=== PATIENT | female | born 1950 | race African-American/Black ===

== ENCOUNTER 2025-03-12 08:30 | Inpatient (IN) | payer OTHER, MEDICARE ==
[~2025-03-12] VITALS: Ht 162.6 cm; Wt 109.0 kg
--- NOTE | 2025-03-12 08:48 | ED.PDOC ---
History of Present Illness HPI Comments This is a 74 year old female presenting to the ED with chief complaint of dizziness. Patient reports that since Sunday, she has been experiencing dizziness with associated nausea, blurred vision, and mild SOB. Patient relays that she has also had some frequent urination, but does not believe it is related. Patient states that getting up worsens her symptoms, but laying down relieves them. Patient notes a recent trip where she was on a flight for 11 hours and since then has had some left calf pain, but reports she was wearing compression socks during the flight. Patient denies any chest pain, headache, vomiting, abdominal pain, dysuria, numbness, or weakness. 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 History Family History Family History: Reviewed,noncontributory to illness Social History Smoker: Non-Smoker Alcohol: Denies ETOH Use Drugs: Denies Drug Use Lives In: Home Constitutional: denies: chills, diaphoresis, fatigue, fever, malaise, sweats, weakness, others EENTM: reports: blurred vision; denies: double vision, ear bleeding, ear discharge, ear drainage, ear pain, ear ringing, eye pain, eye redness, hearing loss, mouth pain, mouth swelling, nasal discharge, nose bleeding, nose congestion, nose pain, photophobia, tearing, throat pain, throat swelling, voice changes, others Respiratory: reports: shortness of breath; denies: cough, hemoptysis, orthopnea, SOB at rest, SOB with excertion, stridor, wheezing, others Cardiovascular: denies: chest pain, dizzy spells, diaphoresis, Dyspnea on exertion, edema, irregular heart beat, left arm pain, lightheadedness, palpitations, PND, syncope, others Gastrointestinal: reports: nausea; denies: abdomen distended, abdominal pain, blood streaked bowels, constipated, diarrhea, dysphagia, difficulty swallowing, hematemesis, melena, poor appetite, poor fluid intake, rectal bleeding, rectal pain, vomiting, others Genitourinary: reports: frequency; denies: abnormal vagina bleeding, burning, dyspareunia, dysuria, flank pain, hematuria, incontinence, pain, , vagina discharge, urgency, others Neurological: reports: dizziness; denies: fainting, headache, left sided numbness, left sided weakness, numbness, paresthesia, pre-existing deficit, right sided numbness, right sided weakness, seizure, speech problems, tingling, tremors, weakness, others Musculoskeletal: reports: others (Lt calf pain); denies: back pain, gout, joint pain, joint swelling, muscle pain, muscle stiffness, neck pain Integumetry: denies: bruises, change in color, change in hair/nails, dryness, laceration, lesions, lumps, rash, wounds, others Allergic/Immunocompromised: denies: Difficulty Healing, Frequent Infections, Hives, Itching, others Hematologic/Lymphatic: denies: anemia, blood clots, easy bleeding, easy bruising, swollen glands, others Endocrine: denies: excessive hunger, excessive sweating, excessive thirst, excessive urination, flushing, intolerance to cold, intolerance to heat, unexplained weight gain, unexplained weight loss, others Psychiatric: denies: anxiety, bipolar disorder, depression, hopeless, panic disorder, schizophrenia, sleepless, suicidal, others All Other Systems: Reviewed and Negative Physical Exam General Appearance: No Apparent Distress, Normal HEENT: Normal ENT Inspection, Pharynx Normal, TMs Normal Neck: Full Range of Motion, Non-Tender, Normal, Normal Inspection Respiratory: Chest Non-Tender, Lungs Clear, No Accessory Muscle Use, No Respiratory Distress, Normal Breath Sounds Cardiovascular: No Edema, No JVD, No Murmur, No Gallop, Normal Peripheral Pulses, Regular Rate/Rhythm Breast Exam: Deferred Gastrointestinal: No Organomegaly, Non Tender, No Pulsatile Mass, Normal Bowel Sounds, Soft Genitalia: Deferred Pelvic: Deferred Rectal: Deferred Extremities: No calf tenderness, Normal capillary refill, Normal inspection, Normal range of motion, Non-tender, No pedal edema Musculoskeletal : Apperance: Normal Neurologic: Alert, molding room supervisor II-XII nml as Tested, No Motor Deficits, Normal Affect, Normal Mood, No Sensory Deficits Cerebellar Function: Normal Reflexes: Normal Skin: Dry, Normal Color, Warm Lymphatic: No Adenopathy Was a procedure done? Was a procedure done?: No Differential Dx Considerations may include: ACS, CVA, viral syndrome, infectious etiology, cardiac arrhythmia X-Ray, Labs, Meds, VS Vital Signs Date Time Temp Pulse Resp B/P (MAP) Pulse Ox O2 Delivery O2 Flow Rate FiO2 03/12/25 14:05 98.4 54 20 157/63 (94) 98 98.4 03/12/25 08:48 60 03/12/25 08:31 98.8 74 18 98 98.8 Lab Test 03/12/25 13:30 03/12/25 10:11 03/12/25 08:58 Range/Units Urine Color Yellow Yellow Urine Clarity Clear Clear Urine pH 5.5 5.0-9.0 Urine Specific [place] 1.024 1.001-1.035 Urine Protein Negative Negative Urine Ketones Negative Negative Urine Blood Negative Negative /uL Urine Nitrite Negative Negative Urine Bilirubin Negative Negative Urine Urobilinogen Normal Negative mg/dL Urine Leukocyte Esterase Negative Negative /uL Urine RBC 1 0 - 4 /hpf Urine Microscopic WBC 1 0-5 /HPF Urine Squamous Epithelial Cells Few <5 /hpf Urine Bacteria Few H None Seen /hpf Urine Mucus Few None Seen Urine Yeast (Budding) Occasional None Seen /hpf Urine Glucose Normal Normal mg/dL Troponin I High Sensitivity < 3 L < 3 L </=34 ng/L White Blood Count 6.8 4.4-10.8 10^3/uL Red Blood Count 4.47 4.0-5.20 10^6/uL Hemoglobin 14.1 12.2-16.2 g/dL Hematocrit 41.3 36.0-46.0 % Mean Corpuscular Volume 92.4 80.0-100.0 fL Mean Corpuscular Hemoglobin 31.5 28.0-32.0 pg Mean Corpuscular Hemoglobin Concent 34.1 32.0-36.0 g/dL Red Cell Distribution Width 15.3 H 11.8-14.3 % Platelet Count 205 140-450 10^3/uL Mean Platelet Volume 8.6 6.9-10.8 fL Neutrophils (%) (Auto) 70.4 37.0-80.0 % Lymphocytes (%) (Auto) 21.4 10.0-50.0 % Monocytes (%) (Auto) 7.4 0.0-12.0 % Eosinophils (%) (Auto) 0.3 0.0-7.0 % Basophils (%) (Auto) 0.5 0.0-2.0 % Neutrophils # (Auto) 4.8 1.6-8.6 10 ^3/uL Lymphocytes # (Auto) 1.5 0.4-5.4 10 ^3/uL Monocytes # (Auto) 0.5 0-1.3 10 ^3/uL Eosinophils # (Auto) 0 0-0.8 10 ^3/uL Basophils # (Auto) 0 0-0.2 10 ^3/uL Nucleated Red Blood Cells 0.1 % Sodium Level 143 136-145 mmol/L Potassium Level 4.1 3.5-5.1 mmol/L Chloride Level 110 H 98-107 mmol/L Carbon Dioxide Level 28 20-31 mmol/L Anion Gap 5 5-15 Blood Urea Nitrogen 13 9-23 mg/dL Creatinine 0.82 0.550-1.02 mg/dL Glomerular Filtration Rate Calc 76 >90 mL/min BUN/Creatinine Ratio 15.9 10.0-20.0 Serum Glucose 129 H 74-106 mg/dL Calcium Level 9.3 8.7-10.4 mg/dL B-Type Natriuretic Peptide 68.08 0-100 pg/mL Time of 1ST Reevaluation: 09:46 Reevaluation 1ST: Unchanged Patient Education/Counseling: Diagnosis, Treatment Family Education/Counseling: No Family Present SEPSIS Sepsis Screen Date sepsis recognized/suspect: Mar 12, 2025 Time Sepsis recognized/suspect: 833 Recent Procedure: No On Antibiotic Therapy: No Respiratory Rate >20: No Heart Rate >90: No Temp<36 C (96.8 F) or >38.3 C: No SBP <90 or MAP <65 mmHG: No New Acute Mental Status Change: No Is the patient on CPAP, BIPAP,: No Physician Orders Chest Portable (03/12/25 08:43) Electrocardigram (03/12/25 08:43) Electrocardigram (03/12/25 09:43) Electrocardigram (03/12/25 11:43) Head Without Contrast (03/12/25 11:20) Vital Signs Date Time Temp Pulse Resp B/P (MAP) Pulse Ox O2 Delivery O2 Flow Rate FiO2 03/12/25 14:05 98.4 54 20 157/63 (94) 98 98.4 03/12/25 08:48 60 03/12/25 08:31 98.8 74 18 98 98.8 Laboratory Tests Test 03/12/25 08:58 White Blood Count 6.8 10^3/uL (4.4-10.8) Departure 1 Departure Time of Disposition: 18:28 (Patient presented with near syncope today and should be admitted. Data: 1. I ordered and reviewed the result of at least 3 labs including a CBC, BMP, and troponin. 2. I independently interpreted the following tests: EKG which shows a sinus arrhythmia and a chest x-ray which shows and benign chest and a CT head which shows benign brain.Risk:This patient has a high risk of morbidity due to further diagnostic testing or treatment and may suffer from an acute cardiac, neurologic, or infectious disorder. Rationale: Patient should be admitted to the hospital for further management.) Impression: Primary Impression: Near syncope Additional Impressions: Generalized weakness Palpitations Disposition: ADMITTED INPATIENT Admit to: Tele Condition: Guarded Critical Care Note Critical Care Time?: No Stability Stability form required: No Heart Score Heart Score: Heart Score Response (Comments) Value History N/A 0 EKG N/A 0 Age N/A 0 Risk Factors N/A 0 Troponin N/A 0 Total 0 I personally scribed for TAMERA BATES MD ([email or web address]) on 03/12/25 at 08:48. Electronically submitted by Jack Mensah ([email or web address]). TAMERA BATES MD Mar 12, 2025 08:48
[2025-03-12 09:07] LABS: Hematocrit 41.3 % (36.0-46.0); Hemoglobin 14.1 g/dL (12.2-16.2); Mean Corpuscular Hemoglobin 31.5 pg (28.0-32.0); Mean Corpuscular Volume 92.4 fL (80.0-100.0); Nucleated Red Blood Cells % 0.1 %
[2025-03-12 09:30] LABS: Chloride 110 mmol/L (98-107); Potassium 4.1 mmol/L (3.5-5.1); Sodium 143 mmol/L (136-145)
[2025-03-12 09:31] LABS: Anion Gap 5 (5-15); Calcium 9.3 mg/dL (8.7-10.4); Carbon Dioxide 28 mmol/L (20-31)
--- NOTE | 2025-03-12 09:31 | DVH ---
CHEST RADIOGRAPH Indication: sob Technique: Single frontal view of the chest was obtained COMPARISON: None FINDINGS: Lines and Tubes: None Lungs: Clear Pleura: No effusion. No pneumothorax. Cardiomediastinal contours: Unremarkable Bones: Unremarkable IMPRESSION: No acute disease.
[2025-03-12 09:36] LABS: BUN/Creatinine Ratio 15.9 (10.0-20.0); Blood Urea Nitrogen 13 mg/dL (9-23)
[2025-03-12 09:42] LABS: Glucose 129 mg/dL (74-106)
--- NOTE | 2025-03-12 11:57 | DVH ---
CT HEAD WITHOUT CONTRAST INDICATION: dizziness EXAM DATE: 03/12/2025 11:21 AM COMPARISON: None RADIATION DOSE: CTDIvol: 54.58 mGy, DLP: 875.04 mGy*cm PROCEDURE: CT scans of the head were obtained from the vertex to the skull base. Sagittal and coronal reconstructions were provided. All CT scans at this medical facility are performed using dose modulation techniques as appropriate t o a performed exam including the following: Automated exposure control was utilized; adjustment of th e MA and/or KV according to patient size; and use of iterative reconstruction technique. FINDINGS: Hypodensity in the left frontal lobe could be from old infarct. There is sulcal and ventric ular prominence. The brain otherwise shows normal morphology and pacheco-white matter differentiation, w ithout intracranial hemorrhage, extra-axial fluid collection, mass effect or acute large vessel infar ct. The ventricles are normal in size. The basal cisterns are patent. The skull and visible facial brenda jeramie are intact. The paranasal sinuses, mastoid air cells and middle ear cavities are well-aerated. Th e soft tissues of the scalp are unremarkable. IMPRESSION: No acute intracranial abnormality.
[2025-03-12 14:06] LABS: Urine Budding Yeast OCCASIONAL /hpf (None Seen); Urine Protein, UAD Negative (Negative)
[2025-03-12] MEDS ORDERED: LOSA-535 PO (15:11)
[2025-03-12] MEDS ORDERED: MORPHINE SULFATE INJ 2 MG/ml SYRG IV PRN (15:15)
[2025-03-12] MEDS ORDERED: NITROGLYCERIN 0.4 MG SL TAB SL PRN (15:15)
[2025-03-12] MEDS ORDERED: ACETAMINOPHEN 325 MG TAB PO PRN (15:15)
--- NOTE | 2025-03-12 15:17 | DVHHP2 ---
History of Present Illness Reason for Visit: Dizziness with SOB, nausea, and blurry vision History of Present Illness Janett Betancourt is a 74-year-old female with past medical history of chronic back pain, lymphadenectomy, hysterectomy and hypertension who presents to the ED with dizziness, nausea, blurry vision, and shortness of breath for the last week. Patient states that she recently traveled to [place] for 18 days and was on the flight for 11 hours. She does report that there were other passengers coughing on the plane. She reports that she is also compliant with her med ications. She reports that lying down makes the dizziness better. She also reports that she has a urgency to void but no burning or frequency or burning or hematuria. Patient denies any recent ingestion of spoiled food, recent trauma or injury, chest pain, fever, chills, lightheadedness, weakness, abdominal pain, vomiting, or diarrhea. Cardiovascular: HTN Past Medical History Chronic back pain Past Surgical History: Hysterectomy, Other (Lymphadenectomy) Family History: Hypertension, Other (Mom with dementia and hypertension) Smoke: No ALCOHOL: none Drugs: None Lives: with Family Domestic Violence: Neg Review of Systems Constitutional: Yes: Other (Dizziness) Eyes: Vision change Respiratory: Shortness of breath Gastrointestinal: Nausea Allergies: Uncoded Allergies: SULFA (Allergy, Unknown, 03/12/25) Exam Vital Signs Vital Signs Date Time Temp Pulse Resp B/P (MAP) Pulse Ox O2 Delivery O2 Flow Rate FiO2 03/12/25 14:05 98.4 54 20 157/63 (94) 98 98.4 General Appearance: Alert, Oriented X3, Cooperative, No acute distress HEENT: Atraumatic, PERRLA, EOMI, Mucous membr. moist/pink Respiratory: Clear to auscultation, Normal air movement Cardiovascular: Regular rate, Normal S1, Normal S2, No murmurs Abdominal: Normal bowel sounds, Soft Extremities: No clubbing, No cyanosis, No edema, Normal pulses Skin: No breakdown, No significant lesion Neuro: Normal gait, Normal speech, Strength at 5/5 X4 ext, Normal tone, Sensation intact Psych/Mental Status: Mental status NL, Mood NL Labs/Xrays Labs Test 03/12/25 13:30 03/12/25 10:11 03/12/25 08:58 Range/Units Urine Color Yellow Yellow Urine Clarity Clear Clear Urine pH 5.5 5.0-9.0 Urine Specific [place] 1.024 1.001-1.035 Urine Protein Negative Negative Urine Ketones Negative Negative Urine Blood Negative Negative /uL Urine Nitrite Negative Negative Urine Bilirubin Negative Negative Urine Urobilinogen Normal Negative mg/dL Urine Leukocyte Esterase Negative Negative /uL Urine RBC 1 0 - 4 /hpf Urine Microscopic WBC 1 0-5 /HPF Urine Squamous Epithelial Cells Few <5 /hpf Urine Bacteria Few H None Seen /hpf Urine Mucus Few None Seen Urine Yeast (Budding) Occasional None Seen /hpf Urine Glucose Normal Normal mg/dL Troponin I High Sensitivity < 3 L </=34 ng/L White Blood Count 6.8 4.4-10.8 10^3/uL Red Blood Count 4.47 4.0-5.20 10^6/uL Hemoglobin 14.1 12.2-16.2 g/dL Hematocrit 41.3 36.0-46.0 % Mean Corpuscular Volume 92.4 80.0-100.0 fL Mean Corpuscular Hemoglobin 31.5 28.0-32.0 pg Mean Corpuscular Hemoglobin Concent 34.1 32.0-36.0 g/dL Red Cell Distribution Width 15.3 H 11.8-14.3 % Platelet Count 205 140-450 10^3/uL Mean Platelet Volume 8.6 6.9-10.8 fL Neutrophils (%) (Auto) 70.4 37.0-80.0 % Lymphocytes (%) (Auto) 21.4 10.0-50.0 % Monocytes (%) (Auto) 7.4 0.0-12.0 % Eosinophils (%) (Auto) 0.3 0.0-7.0 % Basophils (%) (Auto) 0.5 0.0-2.0 % Neutrophils # (Auto) 4.8 1.6-8.6 10 ^3/uL Lymphocytes # (Auto) 1.5 0.4-5.4 10 ^3/uL Monocytes # (Auto) 0.5 0-1.3 10 ^3/uL Eosinophils # (Auto) 0 0-0.8 10 ^3/uL Basophils # (Auto) 0 0-0.2 10 ^3/uL Nucleated Red Blood Cells 0.1 % Sodium Level 143 136-145 mmol/L Potassium Level 4.1 3.5-5.1 mmol/L Chloride Level 110 H 98-107 mmol/L Carbon Dioxide Level 28 20-31 mmol/L Anion Gap 5 5-15 Blood Urea Nitrogen 13 9-23 mg/dL Creatinine 0.82 0.550-1.02 mg/dL Glomerular Filtration Rate Calc 76 >90 mL/min BUN/Creatinine Ratio 15.9 10.0-20.0 Serum Glucose 129 H 74-106 mg/dL Calcium Level 9.3 8.7-10.4 mg/dL B-Type Natriuretic Peptide 68.08 0-100 pg/mL CT HEAD WITHOUT CONTRAST INDICATION: dizziness EXAM DATE: 03/12/2025 11:21 AM COMPARISON: None RADIATION DOSE: CTDIvol: 54.58 mGy, DLP: 875.04 mGy*cm PROCEDURE: CT scans of the head were obtained from the vertex to the skull base. Sagittal and coronal reconstructions were provided. All CT scans at this medical facility are performed using dose modulation techniques as appropriate to a performed exam including the following: Automated exposure control was utilized; adjustment of the MA and/or KV according to patient size; and use of iterative reconstruction technique. FINDINGS: Hypodensity in the left frontal lobe could be from old infarct. There is sulcal and ventricular prominence. The brain otherwise shows normal morphology and pacheco-white matter differentiation, without intracranial hemorrhage, extra-axial fluid collection, mass effect or acute large vessel infarct. The ventricles are normal in size. The basal cisterns are patent. The skull and visible facial bones are intact. The paranasal sinuses, mastoid air cells and middle ear cavities are well-aerated. The soft tissues of the scalp are unremarkable. IMPRESSION: No acute intracranial abnormality. CHEST RADIOGRAPH Indication: sob Technique: Single frontal view of the chest was obtained COMPARISON: None FINDINGS: Lines and Tubes: None Lungs: Clear Pleura: No effusion. No pneumothorax. Cardiomediastinal contours: Unremarkable Bones: Unremarkable IMPRESSION: No acute disease. SEPSIS Sepsis Screen Date sepsis recognized/suspect: Mar 12, 2025 Time Sepsis recognized/suspect: 833 Recent Procedure: No On Antibiotic Therapy: No Respiratory Rate >20: No Heart Rate >90: No Temp<36 C (96.8 F) or >38.3 C: No SBP <90 or MAP <65 mmHG: No New Acute Mental Status Change: No Is the patient on CPAP, BIPAP,: No Physician Orders Chest Portable (03/12/25 08:43) Electrocardigram (03/12/25 08:43) Electrocardigram (03/12/25 09:43) Electrocardigram (03/12/25 11:43) Head Without Contrast (03/12/25 11:20) Vital Signs Date Time Temp Pulse Resp B/P (MAP) Pulse Ox O2 Delivery O2 Flow Rate FiO2 03/12/25 14:05 98.4 54 20 157/63 (94) 98 98.4 03/12/25 08:48 60 03/12/25 08:31 98.8 74 18 98 98.8 Laboratory Tests Test 03/12/25 08:58 White Blood Count 6.8 10^3/uL (4.4-10.8) Assessment/Plan Assessment/Plan Assessment Autonomic imbalance Circadian desynchrony unrelieved with p.o. meds Morbid obesity History of chronic back pain History of hypertension History of lymphadenectomy History of hysterectomy Plan Admit to med surge Antiemetics Pain management CT head noted EKG Troponin noted negative x2 Chest x-ray noted UA noted BNP noted D-dimer ordered Influenza test ordered COVID test ordered Diet Home medications reconciled DVT prophylaxis-SCDs PUD prophylaxis-not indicated no history of GERD or GI bleed Discussed plan of care with patient and nurse Counseled patient on lifestyle modifications, diet, and exercise [id number] Preventive counseling healthy eating habits, physical activity, and regular checkups Plan discussed with: Patient Date of Service: Mar 12, 2025 Billing Provider: EUNICE SMITH Common Visit Codes: 74564-[id number] INP/OBS CARE (HIGH) Secondary Visit Codes: [id number] COUNSELING IND EUNICE SMITH Mar 12, 2025 15:17
[2025-03-12 16:28] VITALS: BP 159/59; PULSE 59; RESP 18; TEMP 98; O2SAT 99
[2025-03-12 18:42] LABS: COVID19 ANTIGEN SOFIA FIA NEGATIVE (NEGATIVE)
[2025-03-12] MEDS: OSELTAMIVIR 75 MG CAP PO SCH (19:46)
[2025-03-12 20:42] VITALS: PULSE 69; RESP 18; O2SAT 99
[2025-03-12 21:00] VITALS: BP 129/61; PULSE 69; RESP 18; TEMP 98.1; O2SAT 99
--- NOTE | 2025-03-13 03:52 | ECG ---
[facility]– [place] Test Date: 2025-03-12 Test Time: 08:48:55 Pat Name: MARI KIMBLE Department: ED Room: 0236 A Gender: F Clinical Education Specialist: REDD : 1950 Requested By: TAMERA BATES Order Number: [id number] Reading MD: Jonathan Taylor Measurements Intervals [place] Rate: 60 P: 27 [place]: 182 QRS: 39 QRSD: 76 T: 47 QT: 396 QTc: 396 Interpretive Statements Sinus rhythm Low voltage, precordial leads Electronically Signed On 03-16-2025 10:18:42 PDT by Jonathan Taylor Please click the below link to view image of tracing.
[2025-03-13 05:00] VITALS: BP 124/43; PULSE 55; RESP 18; TEMP 97.8; O2SAT 98
[2025-03-13 06:55] LABS: Alanine Aminotransferase 13 U/L (7-40); Albumin 3.4 g/dL (3.2-4.8); Alkaline Phosphatase 65 U/L (46-116); Anion Gap 7 (5-15); BUN/Creatinine Ratio 15.6 (10.0-20.0); Blood Urea Nitrogen 12 mg/dL (9-23); Calcium 8.8 mg/dL (8.7-10.4); Carbon Dioxide 27 mmol/L (20-31); Glucose 88 mg/dL (74-106); Potassium 3.7 mmol/L (3.5-5.1); Sodium 143 mmol/L (136-145); Total Protein 6.7 g/dL (5.7-8.2)
[2025-03-13 06:56] LABS: Bilirubin, Total 0.5 mg/dL (0.2-1.0)
[2025-03-13 06:57] LABS: Hematocrit 38.1 % (36.0-46.0); Hemoglobin 13.2 g/dL (12.2-16.2); Mean Corpuscular Hemoglobin 31.9 pg (28.0-32.0); Mean Corpuscular Volume 92.0 fL (80.0-100.0); Nucleated Red Blood Cells % 0.0 %
[2025-03-13 07:01] LABS: Chloride 109 mmol/L (98-107)
[2025-03-13 09:00] VITALS: BP_SYST 145; BP_SYST 98; BP_DIAS 70; PULSE 102; PULSE 59; RESP 18; TEMP 97.9; TEMP 98.1; O2SAT 94; O2SAT 98
[2025-03-13] MEDS: LOSARTAN POTASSIUM 50 MG TAB PO SCH (11:39)
--- NOTE | 2025-03-13 11:52 | DVHPN2 ---
Subjective The patient is seen and examined at bedside. Feel better. Less dizziness. Reviewed: Care Plan, H&P, Labs, Medications, Previous Orders, Radiology Changes from previous H/P or p: No Changes Eyes: Vision change Respiratory: Shortness of breath Gastrointestinal: Nausea Objective Vitals Vital Signs Date Time Temp Pulse Resp B/P (MAP) Pulse Ox O2 Delivery O2 Flow Rate FiO2 03/13/25 11:39 145/70 03/13/25 09:00 97.9 59 18 98 97.9 03/12/25 20:42 Room Air* 0 21 General Appearance: Alert, Oriented X3, Cooperative, No acute distress HEENT: Atraumatic, PERRLA, EOMI, Mucous membr. moist/pink Neck: Supple Lungs: Clear to auscultation, Normal air movement Cardiovascular: Regular rate, Normal S1, Normal S2, No murmurs, Gallops, Rubs Abdomen: Normal bowel sounds, Soft, No tenderness Neuro: Cranial nerves 3-12 NL Psych/Mental Status: Mental status NL Medications Current Medications Medications Dose Ordered Sig/Jinny Route Start Time Stop Time Status Last Admin Dose Admin Ondansetron HCl 4 mg Q4HP PRN IV 03/12/25 15:15 Acetaminophen 650 mg Q6HP PRN PO 03/12/25 15:15 Nitroglycerin 0.4 mg Q5MINP PRN SL 03/12/25 15:15 Morphine Sulfate 2 mg Q30M PRN IV 03/12/25 15:15 Losartan Potassium 100 mg DAILY PO 03/13/25 10:00 03/13/25 11:39 100 MG Oseltamivir Phosphate 75 mg Q12H PO 03/12/25 20:00 03/17/25 08:01 03/13/25 08:22 75 MG Laboratory Results Laboratory Tests 03/13/25 05:16 Chemistry Test 03/13/25 05:16 Albumin 3.4 g/dL (3.2-4.8) Calcium Level 8.8 mg/dL (8.7-10.4) Total Protein 6.7 g/dL (5.7-8.2) Coagulation Test 03/12/25 15:19 D-Dimer, Quantitative 2.01 mg/L FEU (0.0-0.49) H LFT Test 03/13/25 05:16 Alanine Aminotransferase (ALT) 13 U/L (7-40) Alkaline Phosphatase 65 U/L (46-116) Aspartate Amino Transferase (AST) 18 U/L (13-40) Total Bilirubin 0.5 mg/dL (0.2-1.0) Urinalysis Test 03/12/25 13:30 Urine Color Yellow (Yellow) Urine Clarity Clear (Clear) Urine pH 5.5 (5.0-9.0) Urine Specific [place] 1.024 (1.001-1.035) Urine Protein Negative (Negative) Urine Ketones Negative (Negative) Urine Blood Negative /uL (Negative) Urine Nitrite Negative (Negative) Urine Bilirubin Negative (Negative) Urine Urobilinogen Normal mg/dL (Negative) Urine Leukocyte Esterase Negative /uL (Negative) Urine RBC 1 /hpf (0 - 4) Urine Microscopic WBC 1 /HPF (0-5) Urine Squamous Epithelial Cells Few /hpf (<5) Urine Bacteria Few /hpf (None Seen) H Urine Mucus Few (None Seen) Urine Yeast (Budding) Occasional /hpf (None Urine Glucose Normal mg/dL (Normal) Labs and/or images reviewed: Labs reviewed by me Assessment/Plan Assessment/Plan Dizziness probable due to viral infection Influenza a and B positive Morbid obesity History of chronic back pain History of hypertension History of lymphadenectomy History of hysterectomy Continuing current management. Continuing with Tamiflu. Continuing with IV fluid. Discharge planning. This medical document was created using an electronic medical record system with [employer] direct computerized dictation system. Although this document has been carefully reviewed, there may still be some phonetic and typographical errors. These areas are purely typographical due to imperfections of the software programs, and do not reflect any compromise in the patient's medical care. Plan discussed with: Patient Date of Service: Mar 13, 2025 Billing Provider: MEE SIU MD Common Visit Codes: [id number] INP/OBS CARE(HIGH) MEE SIU MD Mar 13, 2025 11:52
[2025-03-13 13:00] VITALS: BP 151/85; PULSE 75; RESP 18; TEMP 98.3; O2SAT 98
[2025-03-13 17:00] VITALS: BP_SYST 116; BP_SYST 81; BP_SYST 97; BP_DIAS 45; BP_DIAS 51; BP_DIAS 57; PULSE 100; PULSE 88; RESP 17; RESP 18; RESP 19; TEMP 97.8; TEMP 98.1; O2SAT 94; O2SAT 98; O2SAT 99
[2025-03-13 21:00] VITALS: BP_SYST 100; BP_SYST 127; BP_SYST 141; BP_DIAS 39; BP_DIAS 56; BP_DIAS 59; PULSE 92; PULSE 97; RESP 15; RESP 16; RESP 17; TEMP 97.1; O2SAT 96; O2SAT 98; O2SAT 99
[2025-03-13] MEDS: ONDANSETRON HCL 4 MG/2 ML VIAL IV PRN (23:11)
[2025-03-14 09:00] VITALS: BP 132/61; PULSE 62; RESP 17; TEMP 98; O2SAT 97
[2025-03-14 12:46] VITALS: BP_SYST 112; BP_SYST 116; BP_SYST 138; BP_DIAS 41; BP_DIAS 46; BP_DIAS 58; PULSE 78; PULSE 81; PULSE 95; RESP 17; TEMP 98; O2SAT 96
[2025-03-14] MEDS ORDERED: TAMIFLU PO (15:26)
--- NOTE | 2025-03-14 15:28 | DVHDS2 ---
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 Morbid obesity History of chronic back pain History of hypertension History of lymphadenectomy History of hysterectomy Labs/Diagnostic Data: Laboratory Results Test 03/13/25 05:16 03/12/25 17:32 03/12/25 15:19 03/12/25 13:30 White Blood Count 6.7 10^3/uL (4.4-10.8) Red Blood Count 4.15 10^6/uL (4.0-5.20) Hemoglobin 13.2 g/dL (12.2-16.2) Hematocrit 38.1 % (36.0-46.0) Mean Corpuscular Volume 92.0 fL (80.0-100.0) Mean Corpuscular Hemoglobin 31.9 pg (28.0-32.0) Mean Corpuscular Hemoglobin Concent 34.6 g/dL (32.0-36.0) Red Cell Distribution Width 15.0 % (11.8-14.3) Platelet Count 195 10^3/uL (140-450) Mean Platelet Volume 9.3 fL (6.9-10.8) Neutrophils (%) (Auto) 54.5 % (37.0-80.0) Lymphocytes (%) (Auto) 32.1 % (10.0-50.0) Monocytes (%) (Auto) 11.2 % (0.0-12.0) Eosinophils (%) (Auto) 1.5 % (0.0-7.0) Basophils (%) (Auto) 0.7 % (0.0-2.0) Neutrophils # (Auto) 3.7 10 ^3/uL (1.6-8.6) Lymphocytes # (Auto) 2.2 10 ^3/uL (0.4-5.4) Monocytes # (Auto) 0.8 10 ^3/uL (0-1.3) Eosinophils # (Auto) 0.1 10 ^3/uL (0-0.8) Basophils # (Auto) 0 10 ^3/uL (0-0.2) Nucleated Red Blood Cells 0.0 % Sodium Level 143 mmol/L (136-145) Potassium Level 3.7 mmol/L (3.5-5.1) Chloride Level 109 mmol/L (98-107) Carbon Dioxide Level 27 mmol/L (20-31) Anion Gap 7 (5-15) Blood Urea Nitrogen 12 mg/dL (9-23) Creatinine 0.77 mg/dL (0.550-1.02) Glomerular Filtration Rate Calc 82 mL/min (>90) BUN/Creatinine Ratio 15.6 (10.0-20.0) Serum Glucose 88 mg/dL (74-106) Calcium Level 8.8 mg/dL (8.7-10.4) Total Bilirubin 0.5 mg/dL (0.2-1.0) Aspartate Amino Transferase (AST) 18 U/L (13-40) Alanine Aminotransferase (ALT) 13 U/L (7-40) Alkaline Phosphatase 65 U/L (46-116) Total Protein 6.7 g/dL (5.7-8.2) Albumin 3.4 g/dL (3.2-4.8) Influenza Type A Antigen Positive (Negative) Influenza Type B Antigen Positive (Negative) SARS-CoV-2 Antigen (Rapid) Negative (NEGATIVE) D-Dimer, Quantitative 2.01 mg/L FEU (0.0-0.49) Urine Color Yellow (Yellow) Urine Clarity Clear (Clear) Urine pH 5.5 (5.0-9.0) Urine Specific [place]stable 1.024 (1.001-1.035) Urine Protein Negative (Negative) Urine Ketones Negative (Negative) Urine Blood Negative /uL (Negative) Urine Nitrite Negative (Negative) Urine Bilirubin Negative (Negative) Urine Urobilinogen Normal mg/dL (Negative) Urine Leukocyte Esterase Negative /uL (Negative) Urine RBC 1 /hpf (0 - 4) Urine Microscopic WBC 1 /HPF (0-5) Urine Squamous Epithelial Cells Few /hpf (<5) Urine Bacteria Few /hpf (None Seen) Urine Mucus Few (None Seen) Urine Yeast (Budding) Occasional /hpf (None Urine Glucose Normal mg/dL (Normal) Test 03/12/25 10:11 03/12/25 08:58 Troponin I High Sensitivity < 3 ng/L (</=34) B-Type Natriuretic Peptide 68.08 pg/mL (0-100) Other Laboratory Tests 03/13/25 05:16 Brief Hx & Hospital Course: This is a 74 years old female with past medical history of chronic back pain, lymphadenopathy, status post lymphadenectomy, hysterectomy, hypertension come to emergency department because of dizziness, nausea, blurred vision and shortness for breath for one week. She recently travel to [place] for 18 day and was on the fly for 11 hours. The patient reports that there is a the past center near her coughing profusely on the plane. The patient reports that when she laid down the dizzy improved. The patient does have some urgency to go ahead but no burning or frequency or hematuria. The patient was admitted. The patient was found to have influenza a and B positive. The patient was started on Tamiflu. The patient was rehydrate. Patient feeling much better today. No dizziness. Patient's appetite is back. No nausea or vomiting. I am going to discharge her home. Advised her to follow up with primary care physician 1-2 weeks. Advised her to drink plenty of water. Take vitamin-C and rest. Continuing Tamiflu for five days. Physical exam: HEENT: Normocephalic atraumatic pupils equal react to light and accommodation. Extraocular muscles intact, conjunctiva pink, oropharynx moist, no thrush, no exudate. Lymphatic: No lymphadenopathy Cardiovascular exam: S1, S2 was heard. No murmurs, rubs, gallops Lung: Clear on auscultation bilaterally, no wheeze, rale, rhonchi. GI: Abdominal soft, nondistended, nontenderness, positive bowel sounds. Extremity: No crepitus, cyanosis, edema. Pedal pulses present bilateral. Full range of motion. Skin: Normal turgor, no rash. Psych: Alert, oriented x3. Neurology: No focal deficits, cranial nerve II to XII grossly intact. This medical document was created using an electronic medical record system with [email or web address] direct computerized dictation system. Although this document has been carefully reviewed, there may still be some phonetic and typographical errors. These areas are purely typographical due to imperfections of the software programs, and do not reflect any compromise in the patient's medical care. Condition at Discharge: Stable Final Diagnosis/Problems List Dizziness probable due to viral infection Influenza a and B positive Morbid obesity History of chronic back pain History of hypertension History of lymphadenectomy History of hysterectomy Discharge Disposition: Home Discharge Instruct/Medications Diet: Regular Activity: No Restrictions, As Tolerated Follow Up/Referral: pcp 1-2 weeks Medications: Tamiflu 75mg PO bid Scheduled Losartan Potassium (Losartan Potassium), 1 TAB PO DAILY, (Reported) Oseltamivir Phosphate (Tamiflu), 75 MG PO Q12H Discharge Statement: "Patient was advised to return to the ER or call 911 if any headaches, dizziness, shortness of breath, chest pain, abdominal pain, bleeding, fevers, or worsening of medical condition. Patient was counseled about treatment plan, medications, possible side effects, patientverbalized understanding. All questions were answered to the best of my ability. This discharge took greater then 30 minutes in planning, reviewing documentation, counseling the patient, and discussing with other team members." ASSESSMENT ASSESSMENT Assessment Influenza A and B infection Dizziness Date of Service: Mar 14, 2025 Billing Provider: MEE SIU MD Common Visit Codes: 45354-HIG/OBS DISCH DAY >30min MEE SIU MD Mar 14, 2025 15:28
[2025-03-14 16:57] VITALS: BP 122/56; PULSE 71; RESP 17; TEMP 97.9; O2SAT 96
--- NOTE | 2025-03-15 18:50 | DVHSR ---
APPROVED REPORT EXAM: Two-dimensional and M-mode echocardiogram with Doppler and color Doppler. Blood Pressure: 127/56 mmHg INDICATION Dizziness RISK FACTORS Obesity: Height: 5'4", Weight: 240 DIMENSIONS LVDd3.3 (3.8-5.7cm)LA (2D)4.0 (1.9-4.0cm)Aortic Root3.1 (2.0-3.7cm) LVDs2.2 (2.5-4.0cm)LA (MM) (1.9-4.0cm)Aortic Cusp Exc2.0 (1.5-2.0cm) EF (%) 64.0 (55-70%)Rt. Atrium3.7 (1.9-4.0cm)Asc. Aorta cm IVSd1.2 (0.7-1.1cm)RV (D)3.3 (1.8-2.4cm) PWd1.3 (0.7-1.1cm) Mitral Valve MitralMitral Stenosis E wave0.62m/sMV Mean GR.mmHg A wave0.99m/sMV Peak GR.mmHg E/A ratio0.62D MVAcm2 DECEL [id number] 1/2 Timems Aortic Valve Aortic ValveAortic Stenosis V11.64m/Archana Mean GR.7mmHg V21.91m/Archana Peak GR.15mmHg LVOT Diameter2.2 (1.8-2.4cm)Doppler AVA3.26cm2 Pulmonic Valve V21.41m/s Tricuspid Valve TR Velocity2.37m/s [id number] Other Information Technically limited study due to body habitus. Conclusion MILD LVH AND MILD LV DIASTOLIC DYSFUNCTION LV EF IS 65% NORMAL VALVES SLIGHTLY DILATED RV NO EFFUSION
== END 2025-03-14 17:00 | disposition home or self-care (01) | DRG 866 ==
LOC: ER 08:30 → OVERFLOW 15:08 → EAST 20:42
PROVIDERS: ADMIT Internal Medicine; ATTEND Internal Medicine
DX: B33.8 Other specified viral diseases (principal); Z68.41 Body mass index [BMI] 40.0-44.9, adult; G90.89 Other disorders of autonomic nervous system; J10.1 Influenza due to other identified influenza virus with other respiratory manifestations; I10 Essential (primary) hypertension; E66.01 Morbid (severe) obesity due to excess calories; Z88.2 Allergy status to sulfonamides; Z79.899 Other long term (current) drug therapy; G89.29 Other chronic pain; Z90.710 Acquired absence of both cervix and uterus
CPT/HCPCS: 36415; 70450; 71045; 80048; 80053; 81001; 83880; 84484; 85025; 85379; 87426; 87804; 93005; 93306; 97110; 97116; 97163; 97530; G0378; J2405